=== PATIENT | female | born 1965 | race Two or more races ===

== ENCOUNTER 2019-10-08 10:12 | Outpatient (CLI) | payer OTHER | END 2019-10-08 10:25 | disposition home or self-care (01) | LOC: MAMO-SONO 10:12 | DX: Z12.31 Encounter for screening mammogram for malignant neoplasm of breast (principal); N63.10 Unspecified lump in the right breast, unspecified quadrant; N63.20 Unspecified lump in the left breast, unspecified quadrant ==

== ENCOUNTER 2019-10-08 10:37 | Outpatient (CLI) | payer OTHER | END 2019-10-08 11:50 | disposition home or self-care (01) | LOC: NUCLEAR 10:37 | DX: M81.0 Age-related osteoporosis without current pathological fracture (principal) ==

== ENCOUNTER 2021-11-22 08:24 | Outpatient (CLI) | payer OTHER | END 2021-11-22 08:33 | disposition home or self-care (01) | LOC: MAMO-SONO 08:24 | PROVIDERS: ATTEND Obstetrics & Gynecology | DX: N60.11 Diffuse cystic mastopathy of right breast (principal) ==

== ENCOUNTER 2022-12-28 11:42 | Outpatient (CLI) | payer OTHER | END 2022-12-28 11:55 | disposition home or self-care (01) | LOC: MRI 11:42 | PROVIDERS: ATTEND Internal Medicine | DX: M75.32 Calcific tendinitis of left shoulder (principal) | CPT/HCPCS: 73218 ==

== ENCOUNTER 2024-07-19 09:01 | Outpatient (CLI) | payer OTHER | END 2024-07-19 09:16 | disposition home or self-care (01) | LOC: MAMO-SONO 09:01 | PROVIDERS: ATTEND Obstetrics & Gynecology Gynecology | DX: N64.4 Mastodynia (principal); Z12.31 Encounter for screening mammogram for malignant neoplasm of breast ==